=== PATIENT | male | born 1945 | race Caucasian/White ===

== ENCOUNTER 2016-12-23 10:31 | Emergency (ER) | payer OTHER ==
[2016-12-23] MEDS ORDERED: ONDANSETRON 4 MG/2 ML VIAL IVP ONE (10:55)
--- NOTE | 2016-12-23 10:57 | EDPHY ---
H & P Stated Complaint: N/V/D x 3 days Source: Patient - Personal History Current Tetanus/Diphtheria Vaccine: Yes Current Tetanus Diphtheria and Acellular Pertussis (TDAP): Yes - Medical/Surgical History Hx Asthma: No Hx Chronic Respiratory Disease: Yes Hx Diabetes: No Hx Cardiac Disease: Yes Hx Renal Disease: Yes Hx Cirrhosis: No Hx Alcoholism: No Hx HIV/AIDS: No Hx Splenectomy or Spleen Trauma: No Other PMH: Kidney failure, MS, HTN - Family History Significant Family History: COPD - Social History Smoking Status: Never smoked Time Seen by Provider: 12/23/16 10:56 HPI/ROS: CHIEF COMPLAINT: Nausea vomiting diarrhea HISTORY OF PRESENT ILLNESS: This is a 71-year-old male patient presenting to the emergency department complaining 3 days with nausea vomiting. Patient states he also had diarrhea for several days diarrhea has resolved with intermittently taking Imodium, but has continued with nausea vomiting unable to take anything by mouth for 2-3 days including medication. Patient states has a history of high blood pressure CVA times to kidney failure COPD peptic ulcer disease. REVIEW OF SYSTEMS: Constitutional: No fever, no chills. Decreased p.o. intake Eyes: No discharge. No blurred vision ENT: No sore throat. Cardiovascular: No chest pain, no palpitations. Respiratory: No cough, no shortness of breath. Gastrointestinal: Abdominal discomfort, nausea vomiting, diarrhea has resolved Genitourinary: No hematuria. Musculoskeletal: No back pain. Skin: No rashes. Neurological: No headache. (Caitlin Trevino) - Physical Exam Exam: General Appearance: Alert, no distress. HEENT: Normocephalic atraumatic Pupils equal and round no pallor or injection. Mucous membranes moist. Respiratory: There are no retractions, lungs are clear to auscultation. Cardiovascular: Regular rate and rhythm. Gastrointestinal: Abdomen is soft, nondistended abdomen diffuse tenderness on palpation, no masses, bowel sounds normal. Neurological: No focal deficits Skin: Warm and dry, no rashes. Musculoskeletal: Neck is supple nontender. Extremities: symmetrical, full range of motion. Psychiatric: Patient is oriented X 3, patient acting appropriately (Caitlin Trevino) Constitutional: Initial Vital Signs Temperature (C) 36.4 C 12/23/16 10:35 Heart Rate 68 12/23/16 10:35 Respiratory Rate 15 12/23/16 10:35 Blood Pressure 219/106 H 12/23/16 10:35 O2 Sat (%) 99 12/23/16 10:35 O2 Delivery Mode Room Air Allergies/Adverse Reactions: No Known Allergies Allergy (Unverified 12/23/16 10:34) Home Medications: Medication Instructions Recorded Albuterol [Proventil Inhaler HFA 1 - 2 puffs IH Q4H PRN 12/23/16 (*)] Aspirin [Aspirin 325 mg (*)] 325 mg PO DAILY 12/23/16 Atenolol [Tenormin 25 mg (*)] 12.5 mg PO HS 12/23/16 Atorvastatin Calcium [Lipitor 20 20 mg PO HS 12/23/16 mg (*)] Cholecalciferol Vit D3 [Vitamin D3 2,000 units PO DAILY 12/23/16 (*)] Docusate Sodium [Colace 100 MG (*)] 100 mg PO HS 12/23/16 FLUoxetine [Prozac 20 MG (*)] 40 mg PO DAILY 12/23/16 Furosemide [Lasix 40 MG (*)] 40 mg PO DAILY 12/23/16 Minoxidil [Minoxidil 10 mg (*)] 10 mg PO DAILY 12/23/16 Minoxidil [Minoxidil 10 mg (*)] 15 mg PO HS 12/23/16 Omeprazole [Prilosec 20 mg] 20 mg PO DAILY 12/23/16 Tamsulosin HCl [Flomax 0.4 MG (*)] 0.8 mg PO HS 12/23/16 Medical Decision Making ED Course/Re-evaluation: I discussed this patient with Gurdeep Trevino. I evaluated the patient he seems to have a gastroenteritis for the last couple of days and due to his age group we are concerned about dehydration. He is getting some intravenous fluids were checking laboratory studies. He does not seem to have any significant abdominal tenderness at this time. We will admit this patient due to his severe dehydration and the fact that he is really unable to take his medicines. He does have hypertension but no evidence of hypertensive urgency or emergency. (Mehrdad Kunz) Discussed ED plan of care: CBC, CMP UA, IV fluids for dehydration Ulisses 1230: Discussed patient's plan of care with Dr. Kunz, patient be admitted due to uncontrolled hypertension hyperemesis. At this point patient is not in hypertensive crisis or urgency. More likely gastroenteritis. (Caitlin Trevino) Differential Diagnosis: Other differential diagnosis considered but not limited to gastroenteritis, gastritis, acute renal failure, hypertensive crisis, and hypertensive urgency ( Caitlin Trevino) - Data Points Laboratory Results: Laboratory Results 12/23/16 12:00 12/23/16 10:50 12/23/16 12/23/16 12/23/16 12:00 11:40 10:50 WBC 12.61 10^3/uL H 10^3/uL REJ (3.80-9.50) RBC 4.81 10^6/uL 10^6/uL TNP (4.40-6.38) Hgb 14.8 g/dL g/dL TNP (13.7-17.5) Hct 41.9 % % TNP (40.0-51.0) MCV 87.1 fL fL TNP (81.5-99.8) MCH 30.8 pg pg TNP (27.9-34.1) MCHC 35.3 g/dL g/dL TNP (32.4-36.7) RDW 13.6 % % TNP (11.5-15.2) Plt Count TNP TNP MPV TNP TNP Neut % (Auto) 84.3 % H % TNP (39.3-74.2) Lymph % (Auto) 7.9 % L % TNP (15.0-45.0) [place] % (Auto) 6.5 % % TNP (4.5-13.0) Eos % (Auto) 0.2 % L % TNP (0.6-7.6) Baso % (Auto) 0.6 % % TNP (0.3-1.7) Nucleat RBC Rel Count 0.0 % % TNP (0.0-0.2) Absolute Neuts (auto) 10.65 10^3/uL H 10^3/uL TNP (1.70-6.50) Absolute Lymphs (auto) 0.99 10^3/uL L 10^3/uL TNP (1.00-3.00) Absolute Monos (auto) 0.82 10^3/uL H 10^3/uL TNP (0.30-0.80) Absolute Eos (auto) 0.02 10^3/uL L 10^3/uL TNP (0.03-0.40) Absolute Basos (auto) 0.07 10^3/uL 10^3/uL TNP (0.02-0.10) Absolute Nucleated RBC 0.00 10^3/uL 10^3/uL TNP (0-0.01) Immature Gran % 0.5 % % TNP (0.0-1.1) Immature Gran # 0.06 10^3/uL 10^3/uL TNP (0.00-0.10) Sodium 141 mEq/L mEq/L (134-144) Potassium 4.9 mEq/L mEq/L (3.5-5.2) Chloride 107 mEq/L mEq/L (97-110) Carbon Dioxide 15 mEq/l L mEq/l (22-31) Anion Gap 19 mEq/L H mEq/L (8-16) BUN 25 mg/dL H mg/dL (7-23) Creatinine 1.9 mg/dL H mg/dL (0.7-1.3) Estimated GFR 35 Glucose 111 mg/dL H mg/dL (70-100) Calcium 10.6 mg/dL H mg/dL (8.5-10.4) Total Bilirubin 1.4 mg/dL mg/dL (0.1-1.4) AST 30 IU/L IU/L (17-59) ALT 22 IU/L IU/L (21-72) Alkaline Phosphatase 160 IU/L H IU/L (38-126) Total Protein 9.3 g/dL H g/dL (6.3-8.2) Albumin 5.0 g/dL g/dL (3.5-5.0) Specimen Hemolysis 114 12/23/16 10:50 WBC REJ RBC Not Reported Hgb Not Reported Hct Not Reported MCV Not Reported MCH Not Reported MCHC Not Reported RDW Not Reported Plt Count Not Reported MPV TNP Neut % (Auto) Not Reported Lymph % (Auto) Not Reported [place] % (Auto) Not Reported Eos % (Auto) Not Reported Baso % (Auto) Not Reported Nucleat RBC Rel Count Not Reported Absolute Neuts (auto) Not Reported Absolute Lymphs (auto) Not Reported Absolute Monos (auto) Not Reported Absolute Eos (auto) Not Reported Absolute Basos (auto) Not Reported Absolute Nucleated RBC Not Reported Immature Gran % Not Reported Immature Gran # Not Reported Sodium Potassium Chloride Carbon Dioxide Anion Gap BUN Creatinine Estimated GFR Glucose Calcium Total Bilirubin AST ALT Alkaline Phosphatase Total Protein Albumin Specimen Hemolysis Medications Given: Discontinued Medications Hydralazine HCl (Apresoline) 10 mg IVP EDNOW ONE Stop: 12/23/16 12:43 Last Admin: 12/23/16 13:14 Dose: 10 mg Sodium Chloride (Ns) 1,000 mls @ 0 mls/hr IV ONCE ONE PRN Reason: Wide Open Stop: 12/23/16 11:08 Last Admin: 12/23/16 10:50 Dose: 1,000 mls Ondansetron HCl (Zofran) 4 mg IVP EDNOW ONE Stop: 12/23/16 10:56 Last Admin: 12/23/16 10:59 Dose: 4 mg Promethazine HCl (Phenergan) 12.5 mg IVP ONCE ONE Stop: 12/23/16 12:57 Last Admin: 12/23/16 13:14 Dose: 12.5 mg Departure - Departure Disposition: [facility] Acute Clinical Impression: Hypertension Qualifiers: Hypertension type: renovascular hypertension Qualified Code(s): I15.0 - Renovascular hypertension Hyperemesis Qualifiers: Vomiting type: unspecified Nausea presence: with nausea Qualified Code(s): R11.2 - Nausea with vomiting, unspecified
[2016-12-23] MEDS ORDERED: NS 1,000 ML IV ONE ×2 (11:07→14:22)
[2016-12-23 11:18] LABS: ALANINE AMINOTRANSFERASE 22 IU/L (21-72); ALKALINE PHOSPHATASE 160 IU/L (38-126); ANION GAP 19 mEq/L (8-16); ASPARTATE AMINOTRANSFERASE 30 IU/L (17-59); BILIRUBIN,TOTAL 1.4 mg/dL (0.1-1.4); CALCIUM 10.6 mg/dL (8.5-10.4); CARBON DIOXIDE 15 mEq/l (22-31); CHLORIDE 107 mEq/L (97-110); CREATININE 1.9 mg/dL (0.7-1.3); GLOMERULAR FILTRATION RATE 35; GLUCOSE 111 mg/dL (70-100); POTASSIUM 4.9 mEq/L (3.5-5.2); SODIUM 141 mEq/L (134-144); SPECIMEN HEMOLYSIS 114; TOTAL PROTEIN 9.3 g/dL (6.3-8.2)
[2016-12-23 11:55] LABS: ADD DIFF? NO; ADD MORPH? NO; ADD SCAN? NO
[2016-12-23 12:09] LABS: % IMMATURE GRANULYOCYTES 0.5 % (0.0-1.1); ABSOLUTE IMMATURE GRANULOCYTES 0.06 10^3/uL (0.00-0.10); ADD DIFF? NO; ADD MORPH? NO; ADD SCAN? YES; ATYPICAL LYMPHOCYTE FLAG 0 (0-99); FRAGMENT RBC FLAG 0 (0-99); HEMATOCRIT 41.9 % (40.0-51.0); HEMOGLOBIN 14.8 g/dL (13.7-17.5); LEFT SHIFT FLG 10 (0-99); LIPEMIA HEMOLYSIS FLAG 90 (0-99); MEAN CELL HEMOGLOBIN 30.8 pg (27.9-34.1); MEAN CELL HEMOGLOBIN CONCENTR. 35.3 g/dL (32.4-36.7); MEAN CELL VOLUME 87.1 fL (81.5-99.8); RED BLOOD CELL COUNT 4.81 10^6/uL (4.40-6.38); RED CELL DISTRIBUTION WIDTH 13.6 % (11.5-15.2)
[2016-12-23] MEDS ORDERED: ONDANSETRON 4 MG/2 ML VIAL ONE (12:11)
[2016-12-23 12:12] LABS: PLATELET CLUMPS FLAG 300 (0-99)
[2016-12-23 12:24] VITALS: RESP 16
[2016-12-23 12:27] LABS: SCAN NEGATIVE
--- NOTE | 2016-12-23 12:33 | CPEKG ---
Heart Rate: 55 RR Interval: 1091 P-R Interval: 176 QRSD Interval: 82 QT Interval: 520 QTC Interval: 498 P Taylor: 75 QRS Taylor: 40 T Wave Taylor: 76 EKG Severity - ABNORMAL ECG - EKG Impression: SINUS RHYTHM EKG Impression: NONSPECIFIC T ABNORMALITIES, LATERAL LEADS EKG Impression: BORDERLINE PROLONGED QT INTERVAL Electronically Signed By: Mehrdad Kunz 23-Dec-2016 14:01:43
[2016-12-23] MEDS ORDERED: hydrALAZINE 20 MG/ML VIAL IVP ONE (12:42)
[2016-12-23] MEDS ORDERED: PROMETHAZINE HCL 25 MG/ML INJ IVP ONE (12:56)
[2016-12-23] MEDS ORDERED: PROMETHAZINE HCL 25 MG/ML INJ ONE (12:57)
[2016-12-23 13:57] VITALS: TEMP 98.1
[2016-12-23] MEDS ORDERED: LABETALOL HCL 50 MG/10 ML SYR IVP ONE (14:16)
[2016-12-23] MEDS ORDERED: LABETALOL HCL 5 MG/ML 20 ML MDV ONE (14:23)
--- NOTE | 2016-12-23 14:39 | GHP ---
[f rep st] HISTORY AND PHYSICAL DATE OF ADMISSION: 12/23/2016 CHIEF COMPLAINT: Nausea and vomiting. HISTORY OF PRESENT ILLNESS: A 71-year-old male with a history of MS, previous gastritis, hypertensi on, chronic kidney disease, and antiphospholipid syndrome, who presents with 3 days of vomiting. He has a little bit of diarrhea. No fevers. Some chills. No sick contacts. He says that he actuall y has symptoms like this on a fairly regular basis, but it has lasted longer this time. He denies a ny abdominal pain. No melena. No chest pain or shortness of breath. REVIEW OF SYSTEMS: A 10-point review of systems was obtained and other than stated above is negativ e. PAST MEDICAL HISTORY: 1. Antiphospholipid with resulting 2 strokes. 2. History of gastritis and persistent vomiting. 3. Chronic kidney disease, for which he sees Dr. Brothers. 4. MS. 5. BPH. 6. Hypertension, on multiple medications including minoxidil. SOCIAL HISTORY: He does smoke cigars. No alcohol. FAMILY HISTORY: Reviewed and noncontributory. PHYSICAL EXAMINATION: VITAL SIGNS: Afebrile. Blood pressure is 219/106, heart rate 68, oxygen sat uration 99% on room air. GENERAL: The patient is well developed and in no apparent distress. HEEN T: Nonicteric sclerae. Extraocular movements intact. Moist mucous membranes. NECK: Supple. No thyromegaly. LUNGS: Good effort. Clear to auscultation bilaterally. CARDIOVASCULAR: Regular rat e and rhythm. No murmurs or gallops. ABDOMEN: Positive bowel sounds. Soft, nontender, nondistend ed. No hepatosplenomegaly. EXTREMITIES: No clubbing, cyanosis, or edema. SKIN: Without rash. D ry. Intact. NEUROLOGIC: Alert and oriented x3. Moving all 4 extremities equally. PSYCHIATRIC: Normal affect. LABORATORY DATA: White blood cell count is 12. Hemoglobin is 14. Sodium 141, potassium 4.9, BUN 2 5, creatinine 1.9, alk phos 160. EKG shows a normal sinus rhythm, with no ischemic changes. ASSESSMENT: This is a 71-year-old male with persistent nausea and vomiting. PLAN: Persistent nausea and vomiting: The patient gets all of his care at [facility], and the family i s requesting that he go to [facility]. I did talk to the [facility] physicians, and there is a bed open at [facility]. I will try to get his blood pressure down a little bit further before letting him g o. He has received hydralazine. We will give him another dose of labetalol. If his blood pressure is a little bit better, then he could probably go by private car. The case was discussed with the ER physician and the [facility] physicians as well. /[id number]/MODL
[2016-12-23 16:24] VITALS: BP 210/108; PULSE 80; O2SAT 97
[2016-12-23] MEDS: MINOXIDIL 10 MG TAB PO ONE ×2 (16:24→16:26)
== END 2016-12-23 17:06 | disposition still patient (30) ==
LOC: UNDOADMIN 12:42
DX: R11.2 Nausea with vomiting, unspecified (principal); I15.0 Renovascular hypertension; I10 Essential (primary) hypertension; Z79.82 Long term (current) use of aspirin
CPT/HCPCS: 96374; J0360; J2405; J2550; J3490

== ENCOUNTER 2018-03-30 23:21 | Emergency (ER) | payer OTHER ==
[2018-03-30 23:32] VITALS: BP 0/0
--- NOTE | 2018-03-30 23:40 | EDPHY ---
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 Patient prior to coming to the emergency room had close to an hour of cardiopulmonary resuscitation with intubation in the field, continuous CPR, and 4 rounds of epinephrine. Also additionally had shock out of fine VFib x2. Patient arrives to the emergency room in cardiopulmonary arrest. We did resume CPR upon arrival with high quality CPR for another 15-20 minutes. Family arrived. Decisions made with the family were to and resuscitation efforts given over hour and 20 min of continuous CPR with ACLS protocol. The patient was reintubated here in the emergency room as the endotracheal tube was directly visualized in the oral pharyngeal region. With the distended abdomen. The patient had no return of spontaneous circulation. was brought at bedside. This was not directly witnessed cardiopulmonary arrest but did have bystander CPR as the family found him unresponsive. Past Medical History: Unknown medical history Past Surgical History: Unknown surgical history Social History: Unknown Family History: Unknown ROS REVIEW OF SYSTEMS: Limited due to patient's clinical state and cardiopulmonary arrest Exam Constitutional unresponsive Eyes fixed and dilated HENT endotracheal tube outside of oropharynx. Respiratory decreased breath sounds bilaterally Cardiovascular no pulse Gastrointestinal distended abdomen Musculoskeletal thin extremities. Cool to touch. No distal pulses. Skin cool to touch. Mottled. Neurologic unresponsive Differential Diagnosis: Includes but is not limited to in a particular order cardiopulmonary arrest, V-tach arrest, VFib arrest, aortic dissection, ruptured AAA, massive PE. Medical Decision Making: Plan for this patient he has received high quality CPR and cardiopulmonary resuscitation for over an hour and 20 min. Despite these efforts patient had no return of spontaneous circulation. The decision was made to and resuscitative efforts. Family at bedside. was brought back during high called the CPR. Re-evaluation: ED intubation: Patient had a distended abdomen upon arrival and appeared endotracheal tube may have been dislodged. The endotracheal tube was removed. The patient was reintubated by myself. A MAC 4 blade was used for and direct visualization of the cords were obtain. A 7 0 endotracheal tube was passed directly through the cords. Good air movement bilaterally once re-intubated. Despite over an hour and and 20 min of resuscitation efforts. Patient had no return of spontaneous circulation. Effort to further resuscitated him was terminated family at bedside. Time of 2333 Source: Patient, EMS - Personal History Current Tetanus Diphtheria and Acellular Pertussis (TDAP): Unsure - Medical/Surgical History Hx Asthma: No Hx Chronic Respiratory Disease: Yes Hx Diabetes: No Hx Cardiac Disease: Yes Hx Renal Disease: Yes Hx Cirrhosis: No Hx Alcoholism: No Hx HIV/AIDS: No Hx Splenectomy or Spleen Trauma: No Other PMH: Kidney failure, MS, HTN - Social History Smoking Status: Never smoked Constitutional: Initial Vital Signs Temperature (C) 34 C L 03/30/18 23:29 Heart Rate 0 L 03/30/18 23:29 Respiratory Rate 0 L 03/30/18 23:29 Blood Pressure 0/0 L 03/30/18 23:29 Allergies/Adverse Reactions: No Known Allergies Allergy (Unverified 12/23/16 10:34) Home Medications: Medication Instructions Recorded Albuterol [Proventil Inhaler HFA 1 - 2 puffs IH Q4H PRN 12/23/16 (*)] Aspirin [Aspirin 325 mg (*)] 325 mg PO DAILY 12/23/16 Atenolol [Tenormin 25 mg (*)] 12.5 mg PO HS 12/23/16 Atorvastatin Calcium [Lipitor 20 20 mg PO HS 12/23/16 mg (*)] Cholecalciferol Vit D3 [Vitamin D3 2,000 units PO DAILY 12/23/16 (*)] Docusate Sodium [Colace 100 MG (*)] 100 mg PO HS 12/23/16 FLUoxetine [Prozac 20 MG (*)] 40 mg PO DAILY 12/23/16 Furosemide [Lasix 40 MG (*)] 40 mg PO DAILY 12/23/16 Minoxidil [Minoxidil 10 mg (*)] 10 mg PO DAILY 12/23/16 Minoxidil [Minoxidil 10 mg (*)] 15 mg PO HS 12/23/16 Omeprazole [Prilosec 20 mg] 20 mg PO DAILY 12/23/16 Tamsulosin HCl [Flomax 0.4 MG (*)] 0.8 mg PO HS 12/23/16 Departure - Departure Disposition: Clinical Impression: Cardiopulmonary arrest Condition: Critical Referrals: Patient,NotPresent [Primary Care Provider] - As per Instructions
[2018-03-30] MEDS ORDERED: EPINEPHrine 1 MG/10 ML SYR IVP ONE (23:50)
== END 2018-03-31 01:30 | disposition expired ==
LOC: EDUNIT# → EDBD
PROC: 5A19054 Respiratory Ventilation, Single, Nonmechanical (ICD-10-PCS; principal; 2018-03-30)
PROC: 0BH18EZ Insertion of Endotracheal Airway into Trachea, Via Natural or Artificial Opening Endoscopic (ICD-10-PCS; principal; 2018-03-30)
DX: I46.9 Cardiac arrest, cause unspecified (principal)